=== PATIENT | female | born 1975 | race Two or more races ===

== ENCOUNTER 2018-02-07 11:21 | Emergency (ER) | payer OTHER ==
[~2018-02-07] VITALS: Ht 172.7 cm; Wt 56.7 kg
[2018-02-07 11:41] VITALS: BP 140/81
[2018-02-07] MEDS ORDERED: Acetaminophen 500mg (ES) tab ORAL ONE ×2 (11:53→12:00)
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
--- NOTE | 2018-02-07 13:47 | Diagnostic Imaging Report ---
History: PAIN Exam: CT C SPINE Without Contrast Technique more: CTDI is 10.00 mGy and DLP is 200 mGy-cm. Technique more: One or more of the following dose reduction techniques were used: automated exposure control, adjustment of the mA and/or kV according to patient size, use of iterative reconstruction technique. Comparison: None available FINDINGS: No fracture or malalignment. No prevertebral soft tissue swelling. Reversal of the lordosis may represent positioning. Multilevel spondylosis/discogenic change with combination of appearance of ossification along the posterior longitudinal ligament and small posterior disc osteophyte complexes C4-C7 with associated central and right greater than left foraminal narrowing. Visualized small portion of the apices are clear. IMPRESSION: No fracture or malalignment. No prevertebral soft tissue swelling. Reversal of the lordosis may represent positioning. Multilevel spondylosis/discogenic change with combination of appearance of ossification along the posterior longitudinal ligament and small posterior disc osteophyte complexes C4-C7 with associated central and right greater than left foraminal narrowing. May consider follow-up with nonemergent MRI as warranted.
[2018-02-07] MEDS ORDERED: LIDOCAINE700 M1 TP (13:55)
[2018-02-07] MEDS ORDERED: IBUPROFEN600 MG ORAL (13:55)
[2018-02-07 14:22] VITALS: BP 140/81
== END 2018-02-07 14:23 | disposition home or self-care (01) ==
LOC: EMR 11:40
DX: S16.1XXA Strain of muscle, fascia and tendon at neck level, initial encounter (principal); Y04.2XXA Assault by strike against or bumped into by another person, initial encounter; Y92.9 Unspecified place or not applicable; M47.812 Spondylosis without myelopathy or radiculopathy, cervical region; M50.221 Other cervical disc displacement at C4-C5 level
CPT/HCPCS: 72125; 99283

== ENCOUNTER 2018-04-08 14:30 | Emergency (ER) | payer OTHER ==
[~2018-04-08] VITALS: Ht 172.7 cm; Wt 57.2 kg
[~2018-04-08 14:30] MED LIST: IBUPROFEN600 MG ORAL; LIDOCAINE700 M1 TP
[2018-04-08] MEDS ORDERED: NKM (14:47)
[2018-04-08 15:15] VITALS: BP 112/76
[2018-04-08 15:37] LABS: BILIRUBIN, URINE NEGATIVE (NEGATIVE); COLOR,URINE PALE YELLOW; GLUCOSE, URINE (UA) NEGATIVE (NEGATIVE); HEMATOCRIT 23.2 % (37.0-47.0); KETONES,URINE NEGATIVE (NEGATIVE); LEUKOCYTE ESTERASE ,URINE 1+ (NEGATIVE); MEAN CORPUSCULAR VOLUME 57 FL (80-99); NITRITE,URINE NEGATIVE (NEGATIVE); PH,URINE 6.5 (4.5-8.0); PLATELET COUNT 194 K/UL (150-450); PROTEIN,URINE 1+ (NEGATIVE); RED BLOOD COUNT 4.07 M/UL (4.20-5.40); RED CELL DISTRIBUTION WIDTH 15.3 % (11.6-14.8); UROBILINOGEN,URINE NORMAL MG/DL (0.0-1.0)
[2018-04-08 15:40] LABS: APPEARANCE,URINE SLIGHTLY CLOUDY
[2018-04-08 15:46] LABS: HEMOGLOBIN 6.1 G/DL (12.0-16.0)
[2018-04-08 15:48] LABS: ANION GAP 9 mmol/L (5-15); BLOOD UREA NITROGEN 7 mg/dL (7-18); CALCIUM 8.7 MG/DL (8.5-10.1); CARBON DIOXIDE 25 MMOL/L (21-32); CHLORIDE 106 MMOL/L (98-107); CREATININE 0.7 MG/DL (0.55-1.30); POTASSIUM 3.8 MMOL/L (3.5-5.1); SODIUM 140 MMOL/L (136-145)
[2018-04-08 15:52] LABS: ALANINE AMINOTRANSFERASE 19 U/L (12-78); ALBUMIN 3.9 G/DL (3.4-5.0); ALBUMIN/GLOBULIN RATIO 1.3 (1.0-2.7); ALKALINE PHOSPHATASE 58 U/L (46-116); ASPARTATE AMINO TRANSFERASE 13 U/L (15-37); BILIRUBIN,TOTAL 0.4 MG/DL (0.2-1.0)
--- NOTE | 2018-04-08 15:58 | Emergency Room Report ---
History of Present Illness General Chief Complaint: Abnormal Labs Source: Patient, Medical Record Present Illness HPI 43-year-old female sent in by PCP for low H&H. Patient states that for the last year she's had heavy menstrual periods. She bleeds for about 5-9 days. Changes multiple pads. Says that she's been feeling very fatigued for the last few months. Is currently on day 3 of her period. Complains of intermittent dizziness. No chest pain or syncopal episodes. Has not seen an [facility]. Allergies: Coded Allergies: ASPIRIN (Verified Allergy, Unknown, 04/08/18) Patient History Past Medical History: see triage record Past Surgical History: none Pertinent Family History: none Last Menstrual Period: 04/02/18 Reviewed Nursing Documentation: PMH: Agreed; PSxH: Agreed Nursing Documentation-PMH Past Medical History: No History, Except For Review of Systems All Other Systems: negative except mentioned in HPI Physical Exam Vital Signs Date Time Temp Pulse Resp B/P (MAP) Pulse Ox O2 Delivery O2 Flow Rate FiO2 04/08/18 14:42 98.7 102 18 112/76 100 Room Air 98.8 Sp02 EP Interpretation: reviewed, normal General Appearance: alert, GCS 15, non-toxic, mild distress Head: normocephalic, atraumatic Eyes: bilateral eye normal inspection, bilateral eye PERRL, bilateral eye EOMI ENT: normal ENT inspection, normal pharynx, normal voice, moist mucus membranes Neck: normal inspection, full range of motion, supple Respiratory: normal inspection, lungs clear, normal breath sounds, no respiratory distress, no retraction, no wheezing, speaking full sentences, chest symmetrical Cardiovascular #1: normal inspection, regular rate, rhythm, no edema, normal capillary refill Cardiovascular #2: 2+ radial (R), 2+ radial (L) Gastrointestinal: normal inspection, non tender, soft, non-distended, no guarding Musculoskeletal: normal inspection, back normal, normal range of motion, non- tender Neurologic: normal inspection, alert, oriented x3, responsive, motor strength/ tone normal, sensory intact, normal gait, speech normal Psychiatric: normal inspection, judgement/insight normal, memory normal Skin: normal inspection, normal color, no rash, warm/dry, well hydrated, normal turgor Medical Decision Making Diagnostic Impression: Primary Impression: Symptomatic anemia Additional Impression: Menorrhagia ER Course 43-year-old female with symptomatic anemia DDX: Anemia secondary to vaginal bleeding Plan: Obtain labs, ua, transfusion ER course: Patient has been monitored during ED stay, HD stable Low hemoglobin, 6.1, began transfusion here in the emergency room, 1 unit received Disposition: Patient is to bexferred to outside hospital 2/ insurance issue. DW Dr Ramos Please note that this Emergency Department Report was dictated using [employer] assistant technology software, occasionally this can lead to erroneous entry secondary to interpretation by the dictation equipment. Laboratory Tests Test 04/08/18 15:08 White Blood Count 11.0 K/UL (4.8-10.8) H Red Blood Count 4.07 M/UL (4.20-5.40) L Hemoglobin 6.1 G/DL (12.0-16.0) *L Hematocrit 23.2 % (37.0-47.0) L Mean Corpuscular Volume 57 FL (80-99) L Mean Corpuscular Hemoglobin 15.1 PG (27.0-31.0) L Mean Corpuscular Hemoglobin Concent 26.5 G/DL (32.0-36.0) L Red Cell Distribution Width 15.3 % (11.6-14.8) H Platelet Count 194 K/UL (150-450) Mean Platelet Volume 10.0 FL (6.5-10.1) Neutrophils (%) (Auto) % (45.0-75.0) Lymphocytes (%) (Auto) % (20.0-45.0) Monocytes (%) (Auto) % (1.0-10.0) Eosinophils (%) (Auto) % (0.0-3.0) Basophils (%) (Auto) % (0.0-2.0) Differential Total Cells Counted 100 Neutrophils % (Manual) 84 % (45-75) H Lymphocytes % (Manual) 15 % (20-45) L Monocytes % (Manual) 1 % (1-10) Eosinophils % (Manual) 0 % (0-3) Basophils % (Manual) 0 % (0-2) Band Neutrophils 0 % (0-8) Platelet Estimate Adequate Platelet Morphology Normal Polychromasia 1+ Hypochromasia 3+ Poikilocytosis 1+ Anisocytosis 1+ Microcytosis 3+ Prothrombin Time 10.2 SEC (9.30-11.50) Prothrombin Time INR 1.0 (0.9-1.1) PTT 25 SEC (23-33) Urine Color Pale yellow Urine Appearance Slightly cloudy Urine pH 6.5 (4.5-8.0) Urine Specific [place] 1.010 (1.005-1.035) Urine Protein 1+ (NEGATIVE) H Urine Glucose (UA) Negative (NEGATIVE) Urine Ketones Negative (NEGATIVE) Urine Blood 5+ (NEGATIVE) H Urine Nitrite Negative (NEGATIVE) Urine Bilirubin Negative (NEGATIVE) Urine Urobilinogen Normal MG/DL (0.0-1.0) Urine Leukocyte Esterase 1+ (NEGATIVE) H Urine RBC Tntc /HPF (0 - 2) H Urine WBC 0-2 /HPF (0 - 2) Urine Squamous Epithelial Cells Occasional /LPF Urine Bacteria Occasional /HPF (NONE) Urine Mucus Few /LPF (NONE/OCC) H Urine HCG, Qualitative Negative (NEGATIVE) Sodium Level 140 MMOL/L (136-145) Potassium Level 3.8 MMOL/L (3.5-5.1) Chloride Level 106 MMOL/L (98-107) Carbon Dioxide Level 25 MMOL/L (21-32) Anion Gap 9 mmol/L (5-15) Blood Urea Nitrogen 7 mg/dL (7-18) Creatinine 0.7 MG/DL (0.55-1.30) Estimate Glomerular Filtration Rate > 60 mL/min (>60) Glucose Level 89 MG/DL (74-106) Calcium Level 8.7 MG/DL (8.5-10.1) Total Bilirubin 0.4 MG/DL (0.2-1.0) Aspartate Amino Transferase (AST) 13 U/L (15-37) L Alanine Aminotransferase (ALT) 19 U/L (12-78) Alkaline Phosphatase 58 U/L (46-116) Total Protein 7.0 G/DL (6.4-8.2) Albumin 3.9 G/DL (3.4-5.0) Globulin 3.1 g/dL Albumin/Globulin Ratio 1.3 (1.0-2.7) Lipase 136 U/L (73-393) Last Vital Signs Date Time Temp Pulse Resp B/P (MAP) Pulse Ox O2 Delivery O2 Flow Rate FiO2 04/08/18 15:15 98.8 98 18 112/76 100 Room Air 98.8 Disposition: XFER SHT-TRM HOSP Condition: Serious Referrals: [facility],REFERRING (PCP) Jesse Cosby M.D. Apr 08, 2018 15:58
[2018-04-08 18:40] VITALS: BP 107/68
[2018-04-08 19:23] VITALS: BP 107/68
== END 2018-04-08 19:25 | disposition short-term general hospital (02) ==
LOC: EMR 15:55
DX: D64.9 Anemia, unspecified (principal); N92.0 Excessive and frequent menstruation with regular cycle; R79.89 Other specified abnormal findings of blood chemistry
CPT/HCPCS: 36415; 36430; 80053; 81003; 81025; 83690; 85007; 85025; 85610; 85730; 86850; 86900; 86901; 86920; 99285; P9016